=== PATIENT | male | born 1975 | race Caucasian/White ===

== ENCOUNTER → 2020-10-04 | Outpatient (CLI) | payer MEDICARE ==
[~2020-10-04] MED LIST: ALDACTONE 100M100 MG PO; ALDACTONE 25MG25 M1 PO; AMOXICILLIN 8751 TAB PO; AMOXICILLIN/CLA1 TA1 PO; ASPIRIN 32325 MG/TAB PO; ASPIRIN 81M81 MG/TA2 PO; ASPIRIN E.C. 8181 MG; ASPIRIN E.C. 8181 MG PO; ATIVAN 0.50.5 MG/TAB PO; ATIVAN 1MG T1 MG/TAB PO; ATIVAN 2MG/ML2 MG/ML IV; B-121000 MCG PO; BACTRIM DS 8001 TAB PO; BENADRYL50 MG PO; CEFTIN500 MG PO; CEPHALEXIN500 M1 PO; CIPRO 500MG TA500 MG PO; CLEOCIN HCL300 MG PO; CLONAZEPAM PO; DAZIDOX10 MG PO; DIFLUCAN 100MG100 MG PO; DILAUDID 2MG TAB2 MG PO; DILAUDID 4MG TAB4 MG PO; DOXYCYCLINE 10100 MG PO; DOXYCYCLINE HY100 MG PO; EPIPEN 2-PAK1 MG/ML IM; FLAGYL500 MG PO; FLOMAX 0.40.4 MG/CAP PO; FOLIC ACID 11 MG/TA1 PO; FOLIC ACID0.4 MG PO; GLUCOPHAGE1000 MG PO; IBU800 M1 PO; IMDUR 30MG30 MG/TAB PO; IPRATROPIUM BROM3 M1 IH; K-DUR 10 MEQ T10 MEQ PO; KLOR-CON M2020 MEQ PO; LACTULOSE10 GM/153 PO; LASIX 20MG TABL20 MG PO; LASIX 40MG TABL40 MG PO; LEADER CLE17 GM/Dose PO; LEVSIN0.125 M1 PO; LIBRIUM 25M25 MG/CAP PO; LIPITOR 40MG TA40 MG PO; MELATONIN5 M1 SL; METHOTREXATE25 MG/M2 IJ; MIRTAZAPINE7.5 MG PO; MORP4 IV; MORPHINE 1515 MG/TAB PO; MOTRIN 400400 MG/TAB PO; MULTI VITAMINS1 TAB PO; MULTIPLE VITAMI1 TA5 PO; NATURE'S BLEND100 M2 PO; NEURONTIN100 MG/CAP PO; NEURONTIN300 MG/CAP PO; NEURONTIN600 MG/TAB PO; NIGHT-TIME COL300 ML PO; NITRO-BID22 TD; NORCO 325 MG-101 TAB PO; NORCO 325 MG-51 TAB PO; NORCO 325 MG-7.1 TAB PO; NORVASC 5MG5 MG/TAB PO; OMNICEF 300MG300 MG PO; OXY IR5 MG PO; PERCOCET 325 MG1 TA2 PO; PHENERGAN 25 TA25 MG PO; PLAVIX 75MG TAB75 MG PO; PREDNISONE20 MG PO; PRIL40 PO; PRILOSEC40 MG PO; PRINIVIL10 MG PO; PROMETHAZINE12.5 M5 PO; PROTONIX 40MG T40 MG PO; PROVENTIL0.09 MG/A1 IH; REMERON 15M15 MG/TA1 PO; ROCEPHIN VIA1 G/VIAL IV; ROXICODONE 55 MG/TAB PO; SENOKOT S 50 MG1 TAB PO; SEROQUEL50 MG PO; ULTRAM 50MG TAB50 MG PO; VALIUM 5MG T5 MG/TAB PO; VENTOLIN0.09 MG IH; VISTARIL 2525 MG/CAP PO; VITAMIN D 50,1.25 MG PO; XANAX 1MG1 MG PO; ZOFRAN 4MG T4 MG/TAB PO; ZOFRAN INJ4 MG/2 ML IV; ZOFRAN ODT4 MG PO; ZOHYDRO ER10 MG PO; ZOLOFT 50MG50 MG PO
== END ==
LOC: ZCOL.LAB 18:04
DX: E11.621 Type 2 diabetes mellitus with foot ulcer (principal)

== ENCOUNTER → 2020-10-13 | Outpatient (CLI) | payer MEDICARE ==
[2020-10-13 13:01] LABS: BASO % 0.1 % (0.0-2.0); EOS # 0.1 (0.0-0.7); EOS % 0.9 % (0-4.0); GRAN % 85.9 % (42.2-75.2); HEMATOCRIT 38.3 % (42.0-52.0); HEMOGLOBIN 10.7 g/dl (13.5-18.0); LYMPH # 0.8 (1.2-3.4); LYMPH % 9.9 % (20.0-51.0); MEAN CELL VOLUME 76 fl (80.0-100.0); MEAN CORPUSCULAR HEMOGLOBIN 21 pg (27.0-31.0); MEAN CORPUSCULAR HGB CONC 28 g/dl (33.0-37.0); MEAN PLATELET VOLUME 9.3 fl (7.4-10.4); MONO # 0.2 (0.1-0.6); MONO % 2.7 % (1.7-9.3); PLATELET COUNT 258 K/mm3 (130-400); RED BLOOD COUNT 5.04 M/mm3 (4.20-5.60); REDCELL DISTRIBUTION WIDTH-CV 22.1 % (11.5-14.5)
[2020-10-13 13:02] LABS: ALBUMIN 4.3 gm/dL (3.5-5.0); BILIRUBIN,TOTAL 0.6 mg/dL (0.0-1.0); C-REACTIVE PROTEIN 0.8 mg/dL (0.0-0.9); CALCIUM 9.5 mg/dL (8.4-10.2); CREATININE, serum 0.77 (0.66-1.25); POTASSIUM 4.8 mmol/L (3.4-5.0); TOTAL PROTEIN 7.8 gm/dL (6.4-8.2)
[2020-10-13 13:47] LABS: ERYTHROCYTE SEDIMENTATION RATE 13 mm/hr (0-15)
== END ==
LOC: COL.LAB
PROVIDERS: Nurse Practitioner
DX: B99.9 Unspecified infectious disease (principal); M19.071 Primary osteoarthritis, right ankle and foot; Z89.421 Acquired absence of other right toe(s)

== ENCOUNTER 2022-01-12 18:23 | Inpatient (IN) | payer MEDICARE ==
[~2022-01-12] VITALS: Ht 182.9 cm; Wt 64.7 kg
[2022-01-12 19:24] LABS: HEMOGLOBIN 12.9 g/dl (13.5-18.0); MEAN CELL VOLUME 78 fl (80.0-100.0); MEAN CORPUSCULAR HEMOGLOBIN 24 pg (27-31); MEAN CORPUSCULAR HGB CONC 31 g/dl (33.0-37.0); MEAN PLATELET VOLUME 9.9 fl (7.4-10.4); PLATELET COUNT 132 K/mm3 (130-400); REDCELL DISTRIBUTION WIDTH-CV 25.4 % (11.5-14.5)
[2022-01-12 19:36] LABS: ALBUMIN 2.8 gm/dL (3.5-5.0); BILIRUBIN,TOTAL 2.1 mg/dL (0.2-1.2); CALCIUM 7.9 mg/dL (8.4-10.2); CREATININE, serum 1.01 mg/dL (0.72-1.25); POTASSIUM 4.1 mmol/L (3.5-4.5); TOTAL PROTEIN 6.2 gm/dL (6.2-8.1)
[2022-01-12 20:08] LABS: BAND 30 % (0-10); EOSINOPHIL 4 % (0-4); LYMPHOCYTE 12 % (20.0-51.0); NEUTROPHILS 51 % (42.0-75.2); PLATELET ESTIMATE NORMAL (NORMAL)
[2022-01-12 20:11] LABS: ANISOCYTOSIS 3+; HYPOCHROMIA 2+
[2022-01-12 23:01] LABS: COLLECTION METHOD CLEAN CATCH
[2022-01-12 23:09] LABS: PH 7 (5-8); SQUAMOUS EPITHELIAL None Seen /hpf (0-10); URINE APPEARANCE Clear (CLEAR/HAZY); URINE BACTERIA None Seen /hpf (NONE SEEN); URINE BILIRUBIN Negative (NEGATIVE); URINE BLOOD Negative (NEGATIVE); URINE COLOR Yellow (YELLOW); URINE GLUCOSE Negative (NEGATIVE); URINE KETONE Negative (NEGATIVE); URINE LEUKOCYTE ESTERASE Negative (NEGATIVE); URINE NITRATE Negative (NEGATIVE); URINE PROTEIN(semi-quant) Negative (NEGATIVE); URINE RBC 0-2 /hpf (0-2)
[2022-01-12 23:48] LABS: INR 1.6 (0.8-3.0); PROTHROMBIN TIME 17.7 SECONDS (9.7-12.8)
[2022-01-12 23:53] VITALS: O2SAT 86
[2022-01-12 23:55] VITALS: O2SAT 56; O2SAT 79
[2022-01-12 23:56] VITALS: O2SAT 98
[2022-01-12 23:58] VITALS: O2SAT 99
[2022-01-12 23:59] VITALS: O2SAT 93
[2022-01-13] VITALS (545 sets, daily range): BP systolic 89–120; BP diastolic 66–86; PULSE 68–102; TEMP 97.5–101.4; O2SAT 61–100
[2022-01-13] MEDS ORDERED: DAZIDOX10 MG PO (00:18)
[2022-01-13] MEDS ORDERED: XANAX 1MG1 MG PO (00:19)
[2022-01-13] MEDS ORDERED: PREDNISONE20 MG PO (00:19)
[2022-01-13] MEDS ORDERED: ALDACTONE 100M100 MG PO (00:20)
[2022-01-13] MEDS ORDERED: LIPITOR 40MG TA40 MG PO (00:21)
[2022-01-13] MEDS ORDERED: NORVASC 5MG5 MG/TAB PO (00:21)
[2022-01-13] MEDS ORDERED: GLUCOPHAGE1000 MG PO (00:21)
[2022-01-13] MEDS ORDERED: PLAVIX 75MG TAB75 MG PO (00:21)
[2022-01-13] MEDS ORDERED: NEURONTIN600 MG/TAB PO (00:22)
[2022-01-13] MEDS ORDERED: ZOLOFT 100MG100 MG PO (00:22)
[2022-01-13] MEDS ORDERED: FERROUSAL325 MG PO (00:23)
[2022-01-13] MEDS ORDERED: PROTONIX 40MG T40 MG PO (00:26)
[2022-01-13] MEDS ORDERED: ASPIRIN 81M81 MG/TA2 PO (00:29)
[2022-01-13 00:46] LABS: TRICYCLIC ANTIDEPRESS URINE NEGATIVE
--- NOTE | 2022-01-13 01:48 | NUR ---
Patient arrived to ICU 4 at 2345. Patient was assisted by staff from ED bed to ICU bed. Patient behavior excessive with inappropriate language. Patient easily redirected. Assessment complete. Right lower extremity has erythema present with an open wheeping ulcer to right moffett. Measures 1.5cm x 1cm. Patient erythema outlined. Right great toe base has an open tunneling ulcer with sanguinopurulent drainage. Wound culture sent. Left mid moffett has a scabbed ulcer present. Right foot second toe is amputated and right middle finger has partial amputation. Patient alert and orientated. Orientated to ICU. Yellow gown in place. Bed alarm on. Call light within reach. Patient unable to give medication list. Patient reports to contact roommate, Cristhian for updated list. Patient unaware of Cristhian's phone number and reports to contact daughter. Spoke with patient daughter Sveta. Updated provided to Sveta. Sveta reports patient has not taken any medications in the last 2 days. Cristhian's phone number is [phone]. Attempted to contact Cristhian. No answer and left voicemail requesting a return call. Notified Deb HUNT of no answer regarding medication list. Deb updated medication list off of claim history. Will pass on to next shift to attempt to contact Cristhian again for list.
--- NOTE | 2022-01-13 03:47 | NUR ---
46 yo male with an extensive past medical history is admitted for further care and management of severe sepsis likely secondary to a skin/soft tissue source (probable right lower extremity cellulitis with a history of MRSA). ht 182.9 cm wt 74 kg SCr 1.01 with estimated CrCl >60 ml/min half life 9.1 hours Plan: Patient received an initial loading dose of vancomycin 1500 mg x1 in the ED (20.3 mg/kg); will follow with a maintenance regimen of vancomycin 1000 mg q8h to target a goal trough of 10-15 mcg/ml. Will follow patient's renal function, micro data, and vancomycin levels as indicated to assess for any necessary changes to regimen. Thank you for this dosing consult.
--- NOTE | 2022-01-13 03:49 | NUR ---
PLACED PT ON CPAP DUE TO PT HAVE APNEIC EPISODES AND SATURATIONS DROPPING TO THE LOW 70'S. PT WORE CPAP FOR APPROX 5 MINUTES AND THEN WOKE UP IN A PANIC DUE TO CLAUSTROPHOBIA.
[2022-01-13 05:49] LABS: MEAN CELL VOLUME 78 fl (80.0-100.0); MEAN CORPUSCULAR HGB CONC 31 g/dl (33.0-37.0); PLATELET COUNT 97 K/mm3 (130-400); RED BLOOD COUNT 4.45 M/mm3 (4.20-5.60); REDCELL DISTRIBUTION WIDTH-CV 25.3 % (11.5-14.5)
[2022-01-13 05:52] LABS: HEMATOCRIT 34.7 % (42.0-52.0); HEMOGLOBIN 10.6 g/dl (13.5-18.0); MEAN CORPUSCULAR HEMOGLOBIN 24 pg (27-31)
[2022-01-13 05:54] LABS: INR 1.8 (0.8-3.0); PROTHROMBIN TIME 20.1 SECONDS (9.7-12.8)
[2022-01-13 06:07] LABS: ALBUMIN 2.3 gm/dL (3.5-5.0); BILIRUBIN,TOTAL 1.9 mg/dL (0.2-1.2); CALCIUM 7.7 mg/dL (8.4-10.2); CREATININE, serum 0.62 mg/dL (0.72-1.25); POTASSIUM 3.7 mmol/L (3.5-4.5); TOTAL PROTEIN 5.3 gm/dL (6.2-8.1)
--- NOTE | 2022-01-13 06:55 | NUR ---
Patient required one dose of dilaudid throughout night. Patient remains alert and orientated but yells out while sleeping "help, oh God." When asked patient does not recall yelling and denies needs. BP remained stable throughout night. Resting in bed this AM. Call light in reach.
--- NOTE | 2022-01-13 07:01 | NUR ---
Report given to Yelena SAHU
[2022-01-13 07:16] LABS: BAND 39 % (0-10); LYMPHOCYTE 3 % (20.0-51.0); METAMYELOCYTE 1 % (0-0); NEUTROPHILS 51 % (42.0-75.2); OVALOCYTES 1+
[2022-01-13 07:17] LABS: PLATELET ESTIMATE DECREASED (NORMAL)
--- NOTE | 2022-01-13 10:48 | NUR ---
b and b gang worker attempted to meet with patient x2. Patient is unable to be aroused both times. Will attempt to complete intake tomorrow.
--- NOTE | 2022-01-13 20:38 | NUR ---
Patient had multiple bouts of dry heaving today despite repeated doses of Zofran; patient also was in a lot of pain and given Motrin and dilaudid which patient stated was not helping. Patient was scheduled to go to MRI this morning at 1100 but due to nausea and pain refused to go. Explained to patient that he would not be able to go until Sunday and patient was agreeable to this provided he felt better by that time.
[2022-01-14] VITALS (396 sets, daily range): BP systolic 101–133; BP diastolic 66–89; PULSE 58–82; TEMP 97.7–98.6; O2SAT 81–100
[2022-01-14 04:14] LABS: HEMOGLOBIN 10.2 g/dl (13.5-18.0); MEAN CELL VOLUME 78 fl (80.0-100.0); MEAN CORPUSCULAR HEMOGLOBIN 24 pg (27-31); MEAN CORPUSCULAR HGB CONC 31 g/dl (33.0-37.0); MEAN PLATELET VOLUME 9.6 fl (7.4-10.4); PLATELET COUNT 94 K/mm3 (130-400); RED BLOOD COUNT 4.24 M/mm3 (4.20-5.60); REDCELL DISTRIBUTION WIDTH-CV 25.2 % (11.5-14.5)
[2022-01-14 04:19] LABS: INR 1.4 (0.8-3.0); PROTHROMBIN TIME 15.4 SECONDS (9.7-12.8)
[2022-01-14 04:30] LABS: ALBUMIN 2.3 gm/dL (3.5-5.0); CALCIUM 8.2 mg/dL (8.4-10.2); CREATININE, serum 0.54 mg/dL (0.72-1.25); POTASSIUM 3.4 mmol/L (3.5-4.5); TOTAL PROTEIN 5.5 gm/dL (6.2-8.1)
[2022-01-14 05:00] LABS: BAND 15 % (0-10); LYMPHOCYTE 2 % (20.0-51.0); NEUTROPHILS 77 % (42.0-75.2); PLATELET ESTIMATE DECREASED (NORMAL)
[2022-01-14 05:01] LABS: ANISOCYTOSIS 3+; HYPOCHROMIA 3+; MICROCYTOSIS 1+; OVALOCYTES 3+; SCHISTOCYTES 1+; TARGET CELLS 2+
--- NOTE | 2022-01-14 07:00 | NUR ---
PT RESTING IN BED. VSS. WILL CONTINUE STEPHANIE MONITOR.
--- NOTE | 2022-01-14 11:46 | NUR ---
1130- REPORT CALLED TO RAMONITA SAHU. ALL QUESTIONS ANSWERED. VANC TROUGH DRAWN AND SENT. 1140-PT TRANSFERED TO WHEELCHAIR AND TRANSPORTED TO ROOM 308. RAMONITA SAHU NOTIFIED OF ARRIVAL.
--- NOTE | 2022-01-14 14:24 | NUR ---
Vancomycin Follow-up Pharmacy Note Current regimen: Vancomycin 1 gm IV q8h Vancomycin trough: 9 Adjustments: Will increase Vancomycin to 1.25 gm IV q8h. Pharmacy will continue to closely monitor.
--- NOTE | 2022-01-14 16:09 | NUR ---
youth worker met with patient to discuss discharge plan. Patient currently lives at home alone in [place]. He reports to being independent with his ADL's and will use a cane to assist with mobility. Patient reports that he gett's 11 hours a week in services through [address] [place] [address].Patient has no home oxygen needs. PCP is Dr. Tijerina and he utilizes [facility] for medications with no cost difficulty. Patient does have a DPOA- established listing his daughter Sveta ([phone]) as his agent. Patient is planning on returning home once medically ready. Discharge plan: Home
--- NOTE | 2022-01-14 17:53 | NUR ---
Pt rested well after arriving to the floor. He would arouse to voice. He reported intermittent pain to RLE, PRN Motrin relieved pain. Tunneling ulcer to R great toe, with redness up to below the knee. Pt's breathing is even and unlabored on RA. Denies any SOB, lungs CTA. No N/V, appetite decreased but attempted to eat dinner. HRR. Pt pleasant and cooperative. No needs at this time. Call light within reach.
[2022-01-14] MEDS ORDERED: NEURONTIN600 MG/TAB PO ×2 (21:34→21:37)
--- NOTE | 2022-01-14 21:40 | NUR ---
PT REQ HIS HOME DOSE GABPENTIN AND XANAX- [facility] NOTIFIED, WILL RESTART. ORDERD 1200MG TIARRA TID, PT TAKES 600MG TID- ORDER PLACED AFTER REVIEWING [facility].
--- NOTE | 2022-01-14 22:36 | NUR ---
ALERT AND OX4. VISITORS AT BEDSIDE THIS EVENING. RT LOWER LEG CELLULTIS. BLOOD SUGAR OBTAINED, NOT NEED TO TREAT. PM MEDS GIVEN, ANTIBOTICS. POC DISCUSSED. CALL LIGHT WI REACH.
[2022-01-15 06:45] LABS: GRAN # 3.5 K/mm3 (1.4-6.5); GRAN % 82.2 % (42.2-75.2); HEMOGLOBIN 9.4 g/dl (13.5-18.0); LYMPH # 0.5 K/mm3 (1.2-3.4); LYMPH % 12.4 % (20.0-51.0); MEAN CELL VOLUME 78 fl (80.0-100.0); MEAN CORPUSCULAR HEMOGLOBIN 24 pg (27-31); MEAN CORPUSCULAR HGB CONC 30 g/dl (33.0-37.0); MEAN PLATELET VOLUME 10.7 fl (7.4-10.4); MONO # 0.2 K/mm3 (0.1-0.6); MONO % 4.7 % (1.7-9.3); PLATELET COUNT 90 K/mm3 (130-400); RED BLOOD COUNT 3.99 M/mm3 (4.20-5.60); REDCELL DISTRIBUTION WIDTH-CV 25.1 % (11.5-14.5)
[2022-01-15 06:53] LABS: INR 1.2 (0.8-3.0); PROTHROMBIN TIME 13.2 SECONDS (9.7-12.8)
[2022-01-15 07:03] LABS: ALBUMIN 2.1 gm/dL (3.5-5.0); BILIRUBIN,TOTAL 0.6 mg/dL (0.2-1.2); CALCIUM 8.1 mg/dL (8.4-10.2); CREATININE, serum 0.55 mg/dL (0.72-1.25); POTASSIUM 3.7 mmol/L (3.5-4.5); TOTAL PROTEIN 5.4 gm/dL (6.2-8.1)
[2022-01-15 07:30] VITALS: BP 127/80; PULSE 58; TEMP 98.2
--- NOTE | 2022-01-15 08:55 | NUR ---
PT LAYING SUPINE IN BED ON ROOMAIR. PT STATES THAT THE SWEELING IN HIS LEFT LEG HAS "GONE DOWN AND IT LOOKS REALLY GOOD TODAY." PT STATES THAT HIS PAIN IS A 5 OUT OF 10. PT STATES THAT HEWOULD LIKE TO HAVE A PAIN PILL SO HE CAN "KEEP ON TOP OF IF." PT STATES NO OTHER NEEDS AT THIS TIME. CALL [facility] IS WITHIN REACH.
[2022-01-15 11:09] VITALS: BP 111/82; PULSE 68; TEMP 97.9
[2022-01-15 16:11] VITALS: BP 116/87; PULSE 54; TEMP 98
--- NOTE | 2022-01-15 18:31 | NUR ---
PT LAYING SUPINE ASLEEP IN BED ON ROOM AIR. PT SHOWS NO S/S OF DISTRESS OR PAIN AT THIS TIME. PT RIGHT LEG IS STILL RED BUT NO EDEMA IS NOTED. CALL [facility] IS WITHIN REACH.
[2022-01-15 18:55] LABS: HEMATOCRIT 32.8 % (42.0-52.0); HEMOGLOBIN 9.6 g/dl (13.5-18.0)
[2022-01-15 19:43] VITALS: BP 119/78; PULSE 62; TEMP 97.4
--- NOTE | 2022-01-15 21:14 | NUR ---
ALERT AND OX4. DENIES SOA, CHEST PAIN OR DIZZY. RATING BILATERAL LEG PAIN 7/10, PM MED AND PAIN MED GIVEN. TRIPLE IJ DSG LOOSE AND FALLING OFF. CLEANED IN STERILE FASHION AND CLEAR DSG APPLIED. ANTIBOTICS DISCUSSED. CALL LIGHT WI REACH.
[2022-01-15 23:53] VITALS: BP 117/85; PULSE 51; TEMP 98.2
[2022-01-16 04:34] LABS: BASO % 0.2 % (0.0-2.0); EOS % 0.7 % (0.0-4.0); GRAN # 3.4 K/mm3 (1.4-6.5); GRAN % 63.2 % (42.2-75.2); LYMPH # 1.4 K/mm3 (1.2-3.4); LYMPH % 26.4 % (20.0-51.0); MEAN CELL VOLUME 80 fl (80.0-100.0); MEAN CORPUSCULAR HGB CONC 30 g/dl (33.0-37.0); MEAN PLATELET VOLUME 10.3 fl (7.4-10.4); MONO # 0.5 K/mm3 (0.1-0.6); MONO % 9.3 % (1.7-9.3); PLATELET COUNT 105 K/mm3 (130-400); RED BLOOD COUNT 4.06 M/mm3 (4.20-5.60); REDCELL DISTRIBUTION WIDTH-CV 25.4 % (11.5-14.5)
[2022-01-16 04:38] LABS: HEMATOCRIT 32.3 % (42.0-52.0); HEMOGLOBIN 9.7 g/dl (13.5-18.0); MEAN CORPUSCULAR HEMOGLOBIN 24 pg (27-31)
[2022-01-16 04:41] VITALS: BP 109/75; PULSE 52; TEMP 98.4
[2022-01-16 05:15] LABS: CALCIUM 7.8 mg/dL (8.4-10.2); CREATININE, serum 0.64 mg/dL (0.72-1.25); POTASSIUM 3.6 mmol/L (3.5-4.5)
--- NOTE | 2022-01-16 05:33 | NUR ---
SLEPT THROUGH THE NIGHT WI OUT INCIDENT. [facility] WI RANGE THIS AM.
[2022-01-16 07:05] VITALS: BP 127/84; PULSE 57; TEMP 97.6
[2022-01-16 10:58] VITALS: BP 116/81; PULSE 61; TEMP 97.6
[2022-01-16 15:14] VITALS: BP 122/84; PULSE 59; TEMP 97.9
--- NOTE | 2022-01-16 18:25 | NUR ---
PT LAYING SUPINE IN BED ON ROOM AIR ASLEEP. NO S/S OF DISTRESS OR PAIN. RIGHT LEG IS RED BUT NO EDEMA IS NOTED. CALL [facility] IS WITHIN REACH.
[2022-01-16 19:16] VITALS: BP 113/73; PULSE 53; TEMP 98.2
--- NOTE | 2022-01-16 22:11 | NUR ---
ANTIBOTICS CONTINUED, DR LOFTON UPDATED. PT HAS NOT HAD ANY FEVERS. RT TRIPLE IJ FLUSHED W GOOD BLOOD RETURN. POC DISCUSSED. CALL LIGHT WI REACH. PM MEDS GIVEN.
[2022-01-17 00:24] VITALS: BP 106/73; PULSE 48; TEMP 97.7
[2022-01-17 04:05] VITALS: BP 111/75; PULSE 59; TEMP 97.5
--- NOTE | 2022-01-17 05:18 | NUR ---
RESTED THROUGH THE NIGHT WITHOUT INCIDENT. CALL LIGHT WI REACH.
[2022-01-17 06:46] LABS: BASO % 0.2 % (0.0-2.0); EOS # 0.1 K/mm3 (0.0-0.7); GRAN # 2.7 K/mm3 (1.4-6.5); LYMPH # 1.5 K/mm3 (1.2-3.4); LYMPH % 31.7 % (20.0-51.0); MEAN CELL VOLUME 79 fl (80.0-100.0); MEAN CORPUSCULAR HGB CONC 30 g/dl (33.0-37.0); MEAN PLATELET VOLUME 10.4 fl (7.4-10.4); MONO # 0.5 K/mm3 (0.1-0.6); MONO % 10.7 % (1.7-9.3); PLATELET COUNT 119 K/mm3 (130-400); RED BLOOD COUNT 3.58 M/mm3 (4.20-5.60); REDCELL DISTRIBUTION WIDTH-CV 25.1 % (11.5-14.5)
[2022-01-17 06:51] LABS: HEMATOCRIT 28.4 % (42.0-52.0); HEMOGLOBIN 8.5 g/dl (13.5-18.0); MEAN CORPUSCULAR HEMOGLOBIN 24 pg (27-31)
[2022-01-17 06:58] LABS: CALCIUM 8.1 mg/dL (8.4-10.2); CREATININE, serum 0.6 mg/dL (0.72-1.25); POTASSIUM 3.7 mmol/L (3.5-4.5)
[2022-01-17 07:34] VITALS: BP 109/72; PULSE 62; TEMP 98.2
--- NOTE | 2022-01-17 08:07 | NUR ---
Assessment completed, alert/oriented, vital signs stable, continues to report severe pain to RLE and chronic back pain, requested pain meds and I gave Oxy as ordered, right leg cellulitis / reddness is outlined with a marker and does not appear to have changed much, patient reports swelling appears to have improved but pain and redness have not, he also has a diabetic ulcer to the plantar aspect of his right great toe/ the wound is small but appears to be tunneling, patient reports he has had this wound and for 2-3 years and it is unchanged, fsbs controlled while here in the hospital, heart RRR, lungs CTA/ no resp.difficulty noted, he has taken his morning meds and is now eating breakfast, denies otehr needs at this time
--- NOTE | 2022-01-17 10:49 | NUR ---
CLEMENCIA attended clinical rounds. The patient is to have an MRI today to determine if he has osteomyelitis. If not, the team will look at discharging him later today. If he has osteomyelitis, the patient will likely need IV antibitiotics. CLEMENCIA met with the patient to review discharge plan. The patient plans on returning to his home in [place]. He confirms that he will need a FWW and is agreeable to getting the FWW from [facility]. CLEMENCIA presented and read the IM form outloud to the patient. The patient verbalized understanding and of agreement to discharge today, if ready to discharge. He gave SW verbal consent to sign the form on his behalf. CLEMENCIA provided him with a copy. CLEMENCIA contacted and faxed and emailed the FWW order to [facility] at [facility]. [facility] states that they can deliver the FWW to the patient's room today.
[2022-01-17 11:45] VITALS: BP 112/70; PULSE 56; TEMP 98.1
[2022-01-17 15:52] VITALS: BP 110/77; PULSE 66; TEMP 97.9
[2022-01-17 19:44] VITALS: BP 112/73; PULSE 62; TEMP 98.1
[2022-01-18 00:07] VITALS: BP 110/76; PULSE 69; TEMP 98.4
[2022-01-18 04:17] VITALS: BP 103/62; PULSE 66; TEMP 98.1
--- NOTE | 2022-01-18 05:13 | NUR ---
PT HAD UNEVENTFUL NIGHT THIS SHIFT, PT REMAINS A/OX4, 02 ROOM AIR, ERYTHEMA TO RLE IMPROVING, ABX ADMINISTERED ORDERED. ALL NEEDS MET THIS SHIFT. CALL LIGHT WITHIN REACH.
[2022-01-18 06:47] LABS: CALCIUM 8.7 mg/dL (8.4-10.2); CREATININE, serum 0.63 mg/dL (0.72-1.25); POTASSIUM 4.2 mmol/L (3.5-4.5)
[2022-01-18 07:15] VITALS: BP 116/78; PULSE 59; TEMP 97.8
[2022-01-18 07:42] LABS: BASO % 0.4 % (0.0-2.0); EOS # 0.2 K/mm3 (0.0-0.7); EOS % 2.2 % (0.0-4.0); GRAN # 4.1 K/mm3 (1.4-6.5); GRAN % 56.5 % (42.2-75.2); LYMPH # 2.2 K/mm3 (1.2-3.4); LYMPH % 29.8 % (20.0-51.0); MEAN CELL VOLUME 79 fl (80.0-100.0); MEAN CORPUSCULAR HGB CONC 30 g/dl (33.0-37.0); MEAN PLATELET VOLUME 9.9 fl (7.4-10.4); MONO # 0.8 K/mm3 (0.1-0.6); MONO % 10.6 % (1.7-9.3); PLATELET COUNT 166 K/mm3 (130-400); RED BLOOD COUNT 4.47 M/mm3 (4.20-5.60); REDCELL DISTRIBUTION WIDTH-CV 25.2 % (11.5-14.5)
[2022-01-18 07:44] LABS: HEMATOCRIT 35.3 % (42.0-52.0); HEMOGLOBIN 10.7 g/dl (13.5-18.0); MEAN CORPUSCULAR HEMOGLOBIN 24 pg (27-31)
--- NOTE | 2022-01-18 08:36 | NUR ---
Pt assessment complete. Pt is sitting up in bed upon entry, he is A/O x4. His breathing is even and unlabored on RA. Pt denies SOB. Reports pain to RLE 04/30, requesting pain medication at this time. No N/V. POC discussed with patient who verbalizes understanding. No needs at this time. Call light within reach.
--- NOTE | 2022-01-18 09:47 | NUR ---
[facility] delivered the FWW to the patient's room. The patient has osteomyelitis in his great toe. The patient has elected to proceed with an amputation of his right great toe. Surgery is scheduled for tomorrow. SW to continue to follow. *Discharge plan: home*
[2022-01-18 11:41] VITALS: BP 116/76; PULSE 62; TEMP 98.1
[2022-01-18 15:36] VITALS: BP 107/74; PULSE 82; TEMP 98
--- NOTE | 2022-01-18 19:44 | NUR ---
RCVD REPORT FROM LUIS ALBERTO DOBSON. PT LAYING IN BED AT THIS TIME, DENIES ANY NEEDS AT THIS TIME. WILL RETURN FOR ASSESSMENT AND NIGHT TIME MEDICAITONS.
[2022-01-18 20:34] VITALS: BP 109/78; PULSE 69; TEMP 98.4
[2022-01-19] VITALS (9 sets, daily range): BP systolic 101–117; BP diastolic 65–88; PULSE 63–113; TEMP 97–98.4
--- NOTE | 2022-01-19 01:33 | NUR ---
PT HAS BEEN SLEEPING ALL NIGHT. NO CONCERNS, PT READY FOR SURGERY IN THE AM.
[2022-01-19 06:30] LABS: HEMATOCRIT 39.7 % (42.0-52.0); HEMOGLOBIN 11.9 g/dl (13.5-18.0); MEAN CELL VOLUME 79 fl (80.0-100.0); MEAN CORPUSCULAR HEMOGLOBIN 24 pg (27-31); MEAN CORPUSCULAR HGB CONC 30 g/dl (33.0-37.0); MEAN PLATELET VOLUME 10.1 fl (7.4-10.4); PLATELET COUNT 254 K/mm3 (130-400); REDCELL DISTRIBUTION WIDTH-CV 25.5 % (11.5-14.5)
[2022-01-19 06:43] LABS: CALCIUM 8.9 mg/dL (8.4-10.2); CREATININE, serum 0.62 mg/dL (0.72-1.25); POTASSIUM 4.1 mmol/L (3.5-4.5)
[2022-01-19 06:46] LABS: INR 1.1 (0.8-3.0); PROTHROMBIN TIME 12.4 SECONDS (9.7-12.8)
--- NOTE | 2022-01-19 07:20 | NUR ---
REPORT GIVEN TO LUIS ALBERTO BACA
--- NOTE | 2022-01-19 08:30 | NUR ---
PT RETURNED TO ROOM FROM PROCEDURE, FOOT ELEVATED ON PILLOWS, ICE APPLIED TO SITE,
[2022-01-19] MEDS ORDERED: LANCETS MC (09:49)
[2022-01-19] MEDS ORDERED: FREESTYLE PREC1 EAC5 MC (09:49)
[2022-01-19] MEDS ORDERED: GLUCOSE TEST ST1 DEV MC (09:49)
[2022-01-19] MEDS ORDERED: BD ALCOHOL1 SWA MC (09:49)
--- NOTE | 2022-01-19 10:40 | NUR ---
PT AMBULATING FOR THE FIRST TIME WITH POST OP BOOT, PT HAS STEADY GAIT, PT DRESSING HIMSELF, UNCONNECTED FROM POST OP VITALS.
[2022-01-19] MEDS ORDERED: CEPHALEXIN500 M1 PO (12:41)
--- NOTE | 2022-01-19 13:15 | NUR ---
KEFLEX GIVEN PER MAR ALONG WTIH GABAPENTIN. RIJ REMOVED BY BETZY SAHU. PRESSURE HELD FOR 7 MINUTES. NO OTHER NEEDS AT THIS TIME. PT EAGER FOR DISCHARGE, EDUCATED ON PROCESS OF COMPLETING DISCHARGE PACKET.
--- NOTE | 2022-01-19 14:22 | NUR ---
The patient discharged back home today, 01/19. No additional needs at this time.
--- NOTE | 2022-01-19 15:35 | NUR ---
PT PLEASANT, DISHCARGE EDUCATION PROVIDED, IV REMOVED, FAMILY AT BEDSIDE DURING DISCHARGE EDCUATION, NO QUESTIONS AT THIS TIME. PT BELONGINGS TAKEN OUT WITH PT. PT WEARING POST OP BOOT WITH AMBULATION.
== END 2022-01-19 13:35 | disposition home or self-care (01) | DRG 853 ==
LOC: COL.ER 18:23 → ICU 23:14 → MEDICAL 23:14
PROVIDERS: Emergency Medicine; Internal Medicine; Nurse Practitioner Family; Orthopaedic Surgery; Physician Assistant; Student in an Organized Health Care Education/Training Program; ADMIT Internal Medicine
PROC: 05HM33Z Insertion of Infusion Device into Right Internal Jugular Vein, Percutaneous Approach (ICD-10-PCS; 2022-01-12)
PROC: 0Y6P0Z0 Detachment at Right 1st Toe, Complete, Open Approach (ICD-10-PCS; principal; 2022-01-19 07:30)
DX: A41.51 Sepsis due to Escherichia coli [E. coli] (principal); R65.21 Severe sepsis with septic shock; I50.32 Chronic diastolic (congestive) heart failure; E87.2 Acidosis; E87.1 Hypo-osmolality and hyponatremia; L03.115 Cellulitis of right lower limb; M86.18 Other acute osteomyelitis, other site; E78.5 Hyperlipidemia, unspecified; I25.10 Atherosclerotic heart disease of native coronary artery without angina pectoris; E11.51 Type 2 diabetes mellitus with diabetic peripheral angiopathy without gangrene; I11.0 Hypertensive heart disease with heart failure; I73.1 Thromboangiitis obliterans [Buerger's disease]; J44.9 Chronic obstructive pulmonary disease, unspecified; K70.30 Alcoholic cirrhosis of liver without ascites; I48.91 Unspecified atrial fibrillation; K21.9 Gastro-esophageal reflux disease without esophagitis; F32.A Depression, unspecified; F41.9 Anxiety disorder, unspecified; E87.8 Other disorders of electrolyte and fluid balance, not elsewhere classified; D50.9 Iron deficiency anemia, unspecified; R16.1 Splenomegaly, not elsewhere classified; K44.9 Diaphragmatic hernia without obstruction or gangrene; F15.10 Other stimulant abuse, uncomplicated; F12.10 Cannabis abuse, uncomplicated; E11.69 Type 2 diabetes mellitus with other specified complication; E11.621 Type 2 diabetes mellitus with foot ulcer; L97.519 Non-pressure chronic ulcer of other part of right foot with unspecified severity; B95.61 Methicillin susceptible Staphylococcus aureus infection as the cause of diseases classified elsewhere; D69.6 Thrombocytopenia, unspecified; E11.649 Type 2 diabetes mellitus with hypoglycemia without coma; Z95.5 Presence of coronary angioplasty implant and graft; Z79.52 Long term (current) use of systemic steroids; Z87.891 Personal history of nicotine dependence; Z79.84 Long term (current) use of oral hypoglycemic drugs; Z79.82 Long term (current) use of aspirin
CPT/HCPCS: 99223-AI; 99232-AI; 99233-AI; 99239; A9575; C9113; J0690; J0692; J1100; J1170; J1650; J1720; J1815; J2250; J2405; J2543; J2704; J2795; J3010; J3370; J7030; J7050; J7060; J7120; J7512